=== PATIENT | male | born 1990 ===

== ENCOUNTER 2019-10-17 17:40 | Emergency (ER) | payer MEDICAID ==
[2019-10-17 20:05] VITALS: BP 133/85
[2019-10-17] MEDS ORDERED: ACETAMINOPHEN 500 MG TAB PO ONE (23:47)
[2019-10-17] MEDS ORDERED: diphenhydrAMINE 25 MG CAP PO ONE (23:47)
--- NOTE | 2019-10-17 23:55 | Emergency Department Report ---
ED General Adult HPI - General Chief complaint: Neck Pain/Injury Stated complaint: BACK/NECK/HEAD PAIN Time Seen by Provider: 10/17/19 23:46 Source: patient Mode of arrival: Ambulatory Limitations: No Limitations - History of Present Illness Initial comments: Mr. Bliss is a 29 y/o aam with hx of headaches who presents for posterior headache that radiates to right posterior lateral neck x 2 days. pt denies fall, injury or trauma. Headache is described as 4/10 pressure, . this is usual headache location and intensity for this patient. There is no fever , chills, neck stiffness, no regidty, no dizziness, no lightheadedness, no photophobia, no n/v. Rom is intact and unrestriced, pt is a/o x 3, ambulatory to basesline per patient. Onset/Timin -: days(s) Location: head Severity scale (0 -10): 5 Quality: aching, other (squeezing ) Consistency: constant Improves with: rest Worsens with: other (activity and stress ) Associated Symptoms: headaches. denies: confusion, chest pain, cough, diaphoresis, fever/chills, nausea/vomiting, shortness of breath, syncope, weakness Treatments Prior to Arrival: none - Related Data Previous Rx's Medication Instructions Recorded Last Taken Type Acetaminophen [Acetaminophen TAB] 1,000 mg PO Q6H PRN #30 tablet 10/18/19 Unknown Rx diphenhydrAMINE [Benadryl CAP] 25 mg PO Q6H PRN #30 capsule 10/18/19 Unknown Rx Allergies Allergy/AdvReac Type Severity Reaction Status Date / Time No Known Allergies Allergy Verified 10/17/19 19:56 ED Review of Systems ROS: Stated complaint: BACK/NECK/HEAD PAIN Other details as noted in HPI Constitutional: denies: chills, fever Eyes: denies: eye pain, eye discharge, vision change ENT: denies: ear pain, throat pain, congestion Respiratory: denies: cough, shortness of breath, wheezing Cardiovascular: denies: chest pain, palpitations Endocrine: no symptoms reported Gastrointestinal: denies: abdominal pain, nausea, vomiting Genitourinary: denies: urgency, dysuria Musculoskeletal: denies: back pain Skin: denies: rash, lesions Neurological: headache. denies: weakness, paresthesias, confusion, abnormal gait, vertigo Psychiatric: anxiety. denies: depression, homicidal thoughts, suicidal thoughts Hematological/Lymphatic: denies: easy bleeding, easy bruising ED Past Medical Hx - Past Medical History Previous Medical History?: No - Surgical History Past Surgical History?: No - Social History Smoking Status: Current Every Day Smoker - Medications Home Medications: Home Medications Medication Instructions Recorded Confirmed Last Taken Type Acetaminophen [Acetaminophen TAB] 1,000 mg PO Q6H PRN #30 tablet 10/18/19 Unknown Rx diphenhydrAMINE [Benadryl CAP] 25 mg PO Q6H PRN #30 capsule 10/18/19 Unknown Rx ED Physical Exam - General Limitations: No Limitations General appearance: alert, in no apparent distress - Head Head exam: Present: atraumatic, normocephalic - Eye Eye exam: Present: normal appearance, PERRL, EOMI. Absent: conjunctival injection, nystagmus Pupils: Present: normal accommodation - ENT ENT exam: Present: normal orophraynx, mucous membranes moist, TM's normal bilaterally, normal external ear exam - Neck Neck exam: Present: normal inspection, full ROM. Absent: tenderness (no posterior vertebral point tenderness, no deformtiy no crepitus, rom intact to all quadrants ), meningismus, lymphadenopathy, thyromegaly - Respiratory Respiratory exam: Present: normal lung sounds bilaterally. Absent: respiratory distress, wheezes, stridor, chest wall tenderness - Cardiovascular Cardiovascular Exam: Present: regular rate, normal rhythm, normal heart sounds. Absent: systolic murmur, diastolic murmur, rubs, gallop - GI/Abdominal GI/Abdominal exam: Present: soft, normal bowel sounds. Absent: distended, tenderness, bruit, hernia - Rectal Rectal exam: Present: deferred - Extremities Exam Extremities exam: Present: normal inspection, full ROM. Absent: tenderness - Back Exam Back exam: Present: normal inspection, full ROM. Absent: tenderness - Neurological Exam Neurological exam: Present: alert, oriented X3, CN II-XII intact, normal gait, reflexes normal. Absent: motor sensory deficit - Expanded Neurological Exam Expanded Patient oriented to: Present: person, place, time Speech: Present: fluid speech Motor strength exam: RUE: 5, LUE: 5, RLE: 5, LLE: 5 Best Eye Response ([place]): (4) open spontaneously Best Motor Response ([place]): (6) obeys commands Best Verbal Response ([place]): (5) oriented [place] Total: 15 - Psychiatric Psychiatric exam: Present: normal affect, normal mood - Skin Skin exam: Present: warm, dry, intact, normal color. Absent: rash ED Course Vital Signs 10/17/19 19:59 Temperature 98.3 F Pulse Rate 60 Respiratory 18 Rate Blood Pressure 133/85 [Right] O2 Sat by Pulse 100 Oximetry ED Medical Decision Making - Medical Decision Making This is a tension headache improved with medications given in ed, no neuro deficits pt is ambulatory with steady gait, there is no weakness, dizziness, lightheadedness photphobia or n/v. Plan: dc with home with rx for Tylenol, Benadryl pt verbalized agreement and understanding of same, will follow up with pcp in 2-3 days. Critical care attestation.: If time is entered above; I have spent that time in minutes in the direct care of this critically ill patient, excluding procedure time. ED Disposition Clinical Impression: Headache Qualifiers: Headache type: unspecified Headache chronicity pattern: acute headache Intractability: not intractable Qualified Code(s): R51 - Headache Disposition: DC-01 TO HOME OR SELFCARE Is pt being admited?: No Does the pt Need Aspirin: No Condition: Stable Instructions: Acute Headache (ED) Prescriptions: Acetaminophen [Acetaminophen TAB] 1,000 mg PO Q6H PRN #30 tablet PRN Reason: Headache diphenhydrAMINE [Benadryl CAP] 25 mg PO Q6H PRN #30 capsule PRN Reason: Headache Referrals: STEPHANIE MCCLELLAN MD [Staff Physician] - 3-5 Days Forms: Work/School Release Form(ED) Time of Disposition: 00:06
== END 2019-10-18 00:10 | disposition home or self-care (01) ==
LOC: ED 17:40
DX: R51 Headache (principal); F17.200 Nicotine dependence, unspecified, uncomplicated; Z79.899 Other long term (current) drug therapy
CPT/HCPCS: 99282

== ENCOUNTER 2022-02-14 14:23 | Emergency (ER) | payer MEDICAID ==
[2022-02-14 14:32] VITALS: BP 129/68
[2022-02-14] MEDS ORDERED: FAMOTIDINE 20 MG TAB PO ONE (15:19)
[2022-02-14] MEDS ORDERED: ACETAMINOPHEN 500 MG TAB PO ONE (15:19)
--- NOTE | 2022-02-14 15:54 | XRay Report ---
RIBS-3 views INDICATION: rib cage pain. COMPARISON: None available. IMPRESSION: No acute osseous abnormality. Normal alignment. Clear lungs with normal heart size. Signer Name: Walter Castaneda MD Signed: 02/14/2022 3:50 PM Workstation Name: [id number]
--- NOTE | 2022-02-14 16:16 | Emergency Department Report ---
ED General Adult HPI - General Chief complaint: Pain General Stated complaint: CHEST PAIN Source: patient Mode of arrival: Ambulatory Limitations: No Limitations - History of Present Illness Initial comments: Patient is a 31-year-old -[place] male with a history of GERD and for which he does not take any medication presents to the ED with complaint of left- sided rib pain after he accidentally hit his chest wall against a riding lawnmower 2 weeks ago. Patient states that the pain has been persistent and especially worse with movement, lifting or deep inhalation. Patient also complains of mild epigastric pain which he attributes to his chronic GERD and for which he does not take any medications. Patient denies dizziness, syncope, hemoptysis, cough, sore throat, headache, nausea and vomiting, diarrhea, dysuria, urinary frequency and urgency, fever and chills or back pain. MD Complaint: left rib pain; mild epigastric -: week(s) (2) Location: chest, abdomen (epigastric) Radiation: non-radiation Severity scale (0 -10): 0 Consistency: constant Improves with: none Worsens with: movement Associated Symptoms: denies other symptoms, chest pain (left sided chest wall and rib pain). denies: confusion, cough, diaphoresis, fever/chills, headaches, loss of appetite, malaise, nausea/vomiting, rash, seizure, shortness of breath, syncope, weakness Treatments Prior to Arrival: none - Related Data Previous Rx's Medication Instructions Recorded Last Taken Type Acetaminophen [Acetaminophen TAB] 1,000 mg PO Q6H PRN #30 tablet 10/18/19 Unknown Rx diphenhydrAMINE [Benadryl CAP] 25 mg PO Q6H PRN #30 capsule 10/18/19 Unknown Rx Famotidine [Pepcid] 20 mg PO Q12H #60 tablet 02/14/22 Unknown Rx Naproxen 500 mg PO Q12H PRN #30 tab 02/14/22 Unknown Rx Omeprazole 40 mg PO DAILY #60 cap 02/14/22 Unknown Rx Allergies Allergy/AdvReac Type Severity Reaction Status Date / Time No Known Allergies Allergy Verified 02/14/22 14:32 ED Review of Systems ROS: Stated complaint: CHEST PAIN Other details as noted in HPI Constitutional: denies: chills, fever Eyes: denies: eye pain, eye discharge, vision change ENT: denies: ear pain, throat pain Respiratory: denies: cough, shortness of breath, wheezing Cardiovascular: chest pain (Left-sided chest and rib pain). denies: palpitations Endocrine: no symptoms reported Gastrointestinal: abdominal pain (Mild epigastric pain). denies: nausea, diarrhea Genitourinary: denies: urgency, dysuria Musculoskeletal: denies: back pain, joint swelling, arthralgia Skin: denies: rash, lesions Neurological: denies: headache, weakness, paresthesias Psychiatric: denies: anxiety, depression Hematological/Lymphatic: denies: easy bleeding, easy bruising ED Past Medical Hx - Social History Smoking Status: Current Every Day Smoker - Medications Home Medications: Home Medications Medication Instructions Recorded Confirmed Last Taken Type Acetaminophen [Acetaminophen TAB] 1,000 mg PO Q6H PRN #30 tablet 10/18/19 U nknown Rx diphenhydrAMINE [Benadryl CAP] 25 mg PO Q6H PRN #30 capsule 10/18/19 Unknown Rx Famotidine [Pepcid] 20 mg PO Q12H #60 tablet 02/14/22 Unknown Rx Naproxen 500 mg PO Q12H PRN #30 tab 02/14/22 Unknown Rx Omeprazole 40 mg PO DAILY #60 cap 02/14/22 Unknown Rx ED Physical Exam - General Limitations: No Limitations General appearance: alert, in no apparent distress - Head Head exam: Present: atraumatic, normocephalic, normal inspection - Eye Eye exam: Present: normal appearance, PERRL, EOMI Pupils: Present: normal accommodation - ENT ENT exam: Present: normal orophraynx, mucous membranes moist, TM's normal bilaterally, normal external ear exam - Neck Neck exam: Present: normal inspection, full ROM - Respiratory Respiratory exam: Present: normal lung sounds bilaterally, chest wall tenderness (Palpable reproducible left lateral rib pain with has been playing his chest so). Absent: respiratory distress, wheezes, rales, rhonchi - Cardiovascular Cardiovascular Exam: Present: regular rate, normal rhythm, normal heart sounds. Absent: systolic murmur, diastolic murmur, rubs, gallop - GI/Abdominal GI/Abdominal exam: Present: soft, normal bowel sounds. Absent: distended, tenderness, guarding, rebound, hyperactive bowel sounds, hypoactive bowel sounds, organomegaly - Extremities Exam Extremities exam: Present: normal inspection, full ROM, normal capillary refill - Back Exam Back exam: Present: normal inspection, full ROM. Absent: tenderness, CVA tenderness (R), CVA tenderness (L), muscle spasm, paraspinal tenderness, vertebral tenderness - Neurological Exam Neurological exam: Present: alert, oriented X3, CN II-XII intact, normal gait, reflexes normal - Psychiatric Psychiatric exam: Present: normal affect, normal mood - Skin Skin exam: Present: warm, dry, intact, normal color. Absent: rash ED Course Vital Signs 02/14/22 14:29 Temperature 97 F L Pulse Rate 67 Respiratory 16 Rate Blood Pressure 129/68 [Right] O2 Sat by Pulse 99 Oximetry ED Medical Decision Making - Radiology Data Radiology results: report reviewed, image reviewed [facility] [address] [place] [address] XRay Report Signed Patient: HOWIE LARA MR#: [id number] 4 : 1990 Acct:[id number] Age/Sex: 31 / M ADM Date: 02/14/22 Loc: ED Attending Dr: Ordering Physician: TENZIN PIÑA Date of Service: 02/14/22 Procedure(s): XR ribs UNI w PA chest 3+V LT Accession Number(s): [id number] cc: TENZIN PIÑA Fluoro Time In Minutes: RIBS-3 views INDICATION: rib cage pain. COMPARISON: None available. IMPRESSION: No acute osseous abnormality. Normal alignment. Clear lungs with normal heart size. Signer Name: Walter Castaneda MD Signed: 02/14/2022 3:50 PM Workstation Name: [id number] Transcribed By: EILEEN Dictated By: Walter Castaneda MD Electronically Authenticated By: Walter Castaneda MD Signed Date/Time: 02/14/22 1550 DD/ 1549 TD/TT: - Medical Decision Making This is a 31-year-old -[place] male with a history of GERD and for which he does not take any medication presents to the ED with complaint of left-sided rib pain after he accidentally hit his chest wall against a riding lawnmower 2 weeks ago. Patient states that the pain has been persistent and especially worse with movement, lifting or deep inhalation. Patient also complains of mild epigastric pain which he attributes to his chronic GERD and for which he does not take any medications. In the ED, patient is alert and oriented x3 and is not in any distress. Patient was treated for pain in the ED and also given antacids. Left sided rib and chest x-ray showed no acute pneumothorax, rib fractures, or any cardiopulmonary abnormalities or pneumonitis as well as pleural effusion. Patient was therefore discharged home on pain medications and antacid prescriptions and advised to follow-up with his primary care physician in 7 to 10 days for reevaluation or return to the ED immediately if symptoms get worse. - Differential Diagnosis rib fracture; chest contusion; pneumonia; GERD Critical care attestation.: If time is entered above; I have spent that time in minutes in the direct care of this critically ill patient, excluding procedure time. ED Disposition Clinical Impression: Contusion of rib on left side Qualifiers: Encounter type: initial encounter Qualified Code(s): S20.212A - Contusion of left front wall of thorax, initial encounter Muscle strain of chest wall Qualifiers: Encounter type: initial encounter Qualified Code(s): S29.011A - Strain of muscle and tendon of front wall of thorax, initial encounter GERD (gastroesophageal reflux disease) Qualifiers: Esophagitis presence: esophagitis presence not specified Qualified Code(s): K21.9 - Gastro-esophageal reflux disease without esophagitis Disposition: 01 HOME / SELF CARE / HOMELESS Is pt being admited?: No Does the pt Need Aspirin: No Condition: Stable Instructions: Muscle Strain, [id number], Contusion, [id number], Gastroesophageal Reflux Disease, Adult, [id number], Rib Contusion Additional Instructions: The rib and chest x-ray showed no acute rib fractures or subluxations, pneumothorax or pleural effusion or any cardiopulmonary abnormalities or pneumonitis. Therefore take medications with food, drink plenty of fluids and follow-up with your primary care physician in 7 to 10 days for reevaluation or return to the ED immediately if symptoms get worse. Prescriptions: Naproxen 500 mg PO Q12H PRN #30 tab PRN Reason: Pain , Severe (7-10) Omeprazole 40 mg PO DAILY #60 cap Famotidine [Pepcid] 20 mg PO Q12H #60 tablet Referrals: [facility] [Provider Group] - 3-5 Days Time of Disposition: 16:18 Print Language: GEORGIAN
== END 2022-02-14 16:56 | disposition home or self-care (01) ==
LOC: ED 14:23
DX: S20.212A Contusion of left front wall of thorax, initial encounter (principal); K21.9 Gastro-esophageal reflux disease without esophagitis; F17.200 Nicotine dependence, unspecified, uncomplicated; W22.8XXA Striking against or struck by other objects, initial encounter; Y93.89 Activity, other specified; Y92.89 Other specified places as the place of occurrence of the external cause; Y99.8 Other external cause status
CPT/HCPCS: 99283